=== PATIENT | female | born 1950 | race Hispanic/Latino ===

== ENCOUNTER 2018-07-09 08:18 | Outpatient (CLI) | payer MEDICARE, OTHER ==
--- NOTE | 2018-07-09 11:47 | Vascular Lab Report ---
PROCEDURE: VL AO/IVC/ILIAC DUPLEX LTD TECHNIQUE: Duplex Doppler ultrasound of the abdominal aorta and mesenteric branches was performed HISTORY: CELIAC DUPLEX DOPPLER, CHRONIC VASCULAR DISORDERS OF INTESTINE COMPARISONS: Duplex Doppler ultrasound of the aorta performed on 12/28/2017 FINDINGS: The aorta measures 1.88 cm proximally, 1.35 cm in its midportion, and 1.18 cm distally. There are sca ttered atherosclerotic plaques. Peak systolic velocity (cm/s) are as follows: Proximal aorta: 65 Mid aorta: 75 Distal aorta: 62 Celiac axis: 186 Superior mesenteric artery: Origin: 130 Proximal: 265 Mid: 451 (previously 389) Distal: 168 Hepatic artery: 142 Splenic artery: 83 Right renal artery: 181 Left renal artery: 96 IMPRESSION: Normal caliber of the abdominal aorta without evidence for aneurysm or dissection. Redemonstration of superior mesenteric artery stenosis with elevated peak systolic velocity within it s midportion, slightly increased since the previous study. Mildly elevated peak systolic velocity of the right renal artery, which however does not reach the di agnostic criteria for renal artery stenosis. This document is electronically signed by Juana Padilla MD., July 09 2018 11:44:03 AM ET
== END 2018-07-09 08:19 | disposition home or self-care (01) ==
LOC: VAS 08:18
PROVIDERS: ATTEND Surgery Vascular Surgery
DX: I77.1 Stricture of artery (principal); K55.1 Chronic vascular disorders of intestine; K21.9 Gastro-esophageal reflux disease without esophagitis; Z87.891 Personal history of nicotine dependence
CPT/HCPCS: 93979